=== PATIENT | female | born 1960 | race Two or more races ===

== ENCOUNTER 2023-09-28 05:45 | Day surgery (SDC) | payer OTHER ==
[~2023-09-28 05:45] MED LIST: GLUMETZA500 MG PO; HYDROCH PO; LISINOPRIL10 MG PO; PENTOXIFYLLINE400 MG PO; SIMVAST PO; VITAMIN D PO
== END 2023-09-28 16:30 | disposition home or self-care (01) ==
LOC: CIR.AMB 05:45 → EDBD 09:45 → CIR.AMB 09:45
PROVIDERS: ATTEND Obstetrics & Gynecology
DX: N85.8 Other specified noninflammatory disorders of uterus (principal); N95.0 Postmenopausal bleeding; E78.5 Hyperlipidemia, unspecified; I10 Essential (primary) hypertension; E11.9 Type 2 diabetes mellitus without complications; Z20.822 Contact with and (suspected) exposure to COVID-19